=== PATIENT | male | born 1950 | race Caucasian/White ===

== ENCOUNTER 2017-04-05 10:47 | Day surgery (SDC) | payer BC ==
--- NOTE | 2017-04-05 07:04 | History and Physical - [place] ---
CHIEF COMPLAINT/HISTORY OF CHIEF COMPLAINT: This patient presents with a history of intractable post laminectomy radiculitis. Due to the failure of all therapy a spinal cord stimulator trial was conducted on 03/07/17 with 75-90% pain control. Due to the failure of all therapies and the success of the stimulator trial he presents today for implantation of a permanent system. PAST MEDICAL HISTORY: Hypertension. PAST SURGICAL HISTORY: Lumbar spinal surgery. MEDICATIONS ON ADMISSION: List to be provided. ALLERGIES: None. FAMILY/PSYCHOSOCIAL HISTORY: Social history - Caffeine. Family history - Diabetes, coronary artery disease, and hypertension. SYSTEMS REVIEW: The patient is appropriate in no acute distress. The remainder of the systems review is positive for blood pressure problems, peripheral edema, reflux, degenerative arthritis, depression, and difficulty sleeping. PHYSICAL EXAMINATION: Height is 6'0", weight is 250. No vital signs. HEENT: Within normal limits. LUNGS: Clear. HEART: Regular rate and rhythm. ABDOMEN: Nontender. MUSCULOSKELETAL: Examination of the musculoskeletal system shows diffuse tenderness throughout the lumbar spine. Range of motion does cause pain throughout the low back and extending into the left leg. Ambulation - No assistive device utilized. NEUROLOGIC: Cranial nerves are intact. IMPRESSION: 1. POST LUMBAR LAMINECTOMY SYNDROME, ICD10 CODE M96.1. 2. LUMBAR RADICULITIS, ICD10 CODE M54.16 AND M54.17. PLAN: With respect to the pain pattern it is primarily left and the stimulator trial was successful, he is here for implantation of a permanent system. All of the potential risks, side effects, and complications have been carefully reviewed and discussed including nerve root injury, spinal cord injury, dural puncture, and infection. He understands and has consented. FATOU KHAN D.O. Date & Time JOB NUMBER: [id number] MTDD
[~2017-04-05 10:47] MED LIST: ACETAMINOPHEN 1000MG/100 ML PREMIX IV ONE; CEFAZOLIN 2 Gram 50 ML IVPB ONE; FAMOTIDINE 20MG TABLET PO ONE; MECLIZINE 25 MG TABLET PO ONE; METOCLOPRAMIDE 10 MG TABLET PO ONE
[2017-04-05] MEDS ORDERED: CEFAZOLIN 1G VIAL IM ONE (14:00)
[2017-04-05] MEDS ORDERED: LIDOCAINE 1% W/EPI 1:200,000 MPF 30ML SQ ONE (14:00)
[2017-04-05] MEDS ORDERED: FENTANYL PF 100MCG/2ML VIAL IV ONE (14:00)
[2017-04-05] MEDS ORDERED: PROPOFOL 10 MG/ML VIAL IV ONE (14:00)
[2017-04-05] MEDS ORDERED: *PACU ONLY* KETAMINE HCL 10 MG/ML (20ML) VIAL IV ONE (14:00)
[2017-04-05] MEDS ORDERED: MORPHINE SULFATE 5 MG/ML PFS IVP ONE ×2 (14:00)
[2017-04-05] MEDS ORDERED: BUPIVACAINE 0.5% W/EPI MPF 30 ML VIAL IVP ONE (14:00)
[2017-04-05] MEDS ORDERED: OXYCODONE/APAP 10MG-325MG TABLET PO PRN ×2 (14:59)
[2017-04-05] MEDS ORDERED: HYDROCODONE/APAP 7.5/325MG TABLET PO PRN ×2 (14:59)
[2017-04-05] MEDS ORDERED: TEMAZEPAM 15 MG CAPSULE PO PRN ×2 (14:59)
[2017-04-05] MEDS ORDERED: DIPHENHYDRAMINE HCL IV 50 MG/ML VIAL IVP PRN ×2 (14:59)
[2017-04-05] MEDS ORDERED: SENNOSIDES/DOCUSATE SODIUM UD CAPSULE PO PRN ×2 (14:59)
[2017-04-05] MEDS ORDERED: METOCLOPRAMIDE HCL 10 MG/2 ML VIAL IVP PRN (14:59)
[2017-04-05] MEDS ORDERED: AL HYDROX/MAG HYDROX 30ML UD PO PRN (14:59)
[2017-04-05] MEDS ORDERED: HYDROMORPHONE HCL 1 MG/ML CPJ IM PRN (14:59)
[2017-04-05] MEDS ORDERED: METOCLOPRAMIDE 10 MG TABLET PO PRN (14:59)
[2017-04-05] MEDS ORDERED: ACETAMINOPHEN 325 MG TAB PO PRN ×2 (14:59)
[2017-04-05] MEDS ORDERED: HYDROMORPHONE HCL 2 MG/ML VIAL IM PRN (14:59)
[2017-04-05] MEDS ORDERED: DIPHENHYDRAMINE HCL 25 MG CAPSULE PO PRN ×2 (14:59)
[2017-04-05] MEDS ORDERED: CEFAZOLIN 2 Gram 2 GM/50 ML BAG IVPB SCH (21:00)
[2017-04-05] MEDS ORDERED: 0.9 % SODIUM CHLORIDE 10ML SYR IVP SCH (22:00)
--- NOTE | 2017-04-10 14:17 | RADIOLOGY REPORT ---
EXAM: SUPINE AP THORACIC SPINE HISTORY: STIMULATOR PLACEMENT. TECHNIQUE: A supine AP view of the thoracic spine was obtained. Comparison: None. FINDINGS: Two stimulator leads in place with the tips extending to the T7-T8 level. Slight dextroconvex curvature of the thoracolumbar spine. Power pack overlies the right mid abdomen. IMPRESSION: STIMULATOR LEADS PRESENT EXTENDING CEPHALAD TO THE T7-T8 LEVEL. JOB NUMBER: [id number] MTDD
--- NOTE | 2017-04-14 11:28 | Operative Note ---
DATE OF SURGERY: 04/05/2017. PREOPERATIVE DIAGNOSES: 1. Post lumbar laminectomy syndrome, ICD-10 Code M96.1. 2. Lumbar radiculitis, ICD-10 Code M54.16, M54.17. OPERATION: 1. Fluoroscopic-guided epidural access, right T12-L1, placement of spinal cord stimulator lead 1, a [employer] Infinion 16 electrodes positioned right T7. 2. Complex programming lead 1, 20 minutes. 3. Fluoroscopic epidural access, right T11-12, placement of spinal cord stimulator lead 2, a [employer] Infinion 16 electrodes positioned left T7. 4. Complex programming lead 2, 20 minutes. 5. Incision subdissection, creation of pouch, and then anchoring lead 1 and lead 2 to deep fascia, supraspinous, using anchor device and nonabsorbable suture. 6. Incision subdissection, creation of pouch at the right flank, site picked by patient. 7. Tunneling between pouches, placement of external fork lead 1 and lead 2 into flank pouch, each lead interfaced with bifurcate extension, each bifurcate extension interfaced with a generator. 8. Securing generator, posterior fascia, placing leads in the pouch, closure of incision with Vicryl for fascia and a running subcuticular Vicryl for skin, Dermabond closure. 9. Complex recovery room programming, internal generator home use, recovery room 20 minutes. Surgeon: Chandra Samuels D.O. Anesthesia: Local sedation. Anesthesia Provider: BONITA Burt. Indication: This patient presents with a history of intractable lumbar radiculitis. Due to failure of all therapies, a stimulator trial was conducted with 75-90% pain control. Due to the failure of all therapies, success with the trial, he presents by his request for implantation permanent system. PROCEDURE: Intravenous line, vital sign monitoring, IV sedation, prep, drape, sterile technique. Under imaging, the epidural interspace right of the midline at 12-1, 11-12 infiltrated. Two separate curved access bent needles with loss of resistance. At 12-1, spinal cord stimulator lead 1, a [employer] Infinion 16 electrodes positioned in the epidural space, directed right T7. Complex programming of lead 1 over 20 minutes resulted in a pattern of stimulation which did seem to move to the patient's right side, low back. The epidural access at 11-12 with the same technique. Spinal cord stimulator lead 2, [employer]ion 16 electrodes positioned left at T7. Complex programming of lead 2 over 20 minute resulted in a pattern of stimulation which also crossed into the patient's left side low back. Both leads were then activated simultaneously with a complete band of stimulation across the back and legs; patient indicating where all the right areas. He was given the option of implant, continue to program for better options, or remove. He opted to implant. Question was repeated with the same response. The skin above both needles infiltrated, an incision made. A subcutaneous dissection was conducted, supraspinous fascia. Each lead was then anchored to the supraspinous fascia with anchoring device and nonabsorbable suture. At the right flank, a site picked by the patient, skin infiltrated and incision made. A subcutaneous dissection was conducted to form a pouch of suitable size and depth for the generator identified as [employer] programmable rechargeable. Each of the 2 leads have been anchored with a [employer] locking anchor and non-absorbable suture. A tunneling tool was then used to carry both leads into the generator pouch, and then each lead was interfaced with the bifurcate extension. Each bifurcate extension was then interfaced with the generator. Antibiotic irrigation and Bovie for hemostasis. The leads were coiled and placed in the pouch with the generator and extensions coiled into that pouch. The generator secured to the fascia with nonabsorbable suture using the generator eyelets. The incisions were then both closed with Vicryl for fascia, running subcuticular Vicryl for skin, Dermabond closure. He was transported to the recovery room stable, showing no side effects of the procedure or the sedation. When fully awake and alert, he was transported to the floor. DISCHARGE INSTRUCTIONS: 1. The sites will remain clean and dry, although the Dermabond will allow showering not for 24 hours. 2. Standard medications will be resumed, including Levaquin the antibiotic 500 mg once a day for 14 days. 3. The office to contact the patient at home to evaluate the incisional sites in 3-5 days. Until then, his activity should stay low. All other instructions provided. Numbers to contact if problems given. He will then be discharged. [place]
== END 2017-04-05 17:00 | disposition home or self-care (01) ==
LOC: SUR 10:47 → MEDSURG 15:08 → SUR 17:00
PROVIDERS: ATTEND Pain Medicine Interventional Pain Medicine
DX: M96.1 Postlaminectomy syndrome, not elsewhere classified (principal); M54.16 Radiculopathy, lumbar region; M54.17 Radiculopathy, lumbosacral region; I10 Essential (primary) hypertension
CPT/HCPCS: 95972; 72020; 63685; 63650 ×2; 00300; J3010; J0690; J2270